=== PATIENT | female | born 1995 | race Two or more races ===

== ENCOUNTER 2023-09-12 11:46 | Emergency (ER) | payer MEDICAID ==
[~2023-09-12] VITALS: Ht 160 cm; Wt 72.8 kg
[2023-09-12 13:28] VITALS: BP 125/89; PULSE 103; RESP 18; TEMP 98.4; O2SAT 98
[2023-09-12] MEDS ORDERED: KETOROLAC TROMETH 30 MG/ML 1ML VIAL IM ONE (14:00)
[2023-09-12] MEDS ORDERED: DexAMETHasone SOD PHOS 10MG/1ML VIAL INJ IM ONE (14:00)
[2023-09-12] MEDS ORDERED: BENZ100C97 PO (14:01)
[2023-09-12] MEDS ORDERED: CETI10CH PO (14:01)
[2023-09-12] MEDS ORDERED: IBUP1TAB5 PO (14:01)
[2023-09-12] MEDS ORDERED: PROM1SOL4 PO (14:01)
[2023-09-12 15:35] LABS: Rapid Influenza A Negative (Negative); Rapid Influenza B Negative (Negative)
[2023-09-12 15:36] LABS: COVID19 ANTIGEN SOFIA FIA NEGATIVE (NEGATIVE)
== END 2023-09-12 16:17 | disposition home or self-care (01) ==
LOC: ER 11:46
DX: B34.9 Viral infection, unspecified (principal); Z20.822 Contact with and (suspected) exposure to COVID-19
CPT/HCPCS: 36415; 87426; 87804; 96372; 99284; J1100; J1885